=== PATIENT | female | born 1980 | race Caucasian/White ===

== ENCOUNTER 2024-01-22 06:19 | Observation (INO) ==
[~2024-01-22 06:19] MED LIST: Metoclopramide 5 MG/ML VIAL (10 mg) IV PRN; NS 0.45% 1000 ml BAG 1,000 ML IV SCH; Naloxone 0.4 mg VIAL 0.4 mg/ml 1 ml VIAL IV PRN
[2024-01-22] MEDS ORDERED: Scopolamine 1 mg/72hr PATCH ONE (07:18)
[2024-01-22] MEDS ORDERED: ceFAZolin 2 GM PREMIX 2 GM/50 ML BAG ONE (07:18)
[2024-01-22] MEDS ORDERED: fentaNYL 100 mcg/2 ml 50 MCG/ML VIAL ONE (14:37)
[2024-01-22] MEDS ORDERED: Ondansetron 4 mg VIAL 2 MG/ML 2 ml VIAL ONE (14:38)
[2024-01-22] MEDS: Ondansetron 4 mg VIAL 2 MG/ML 2 ml VIAL IV PRN (14:40)
[2024-01-22] MEDS: fentaNYL 100 mcg/2 ml 50 MCG/ML VIAL IV PRN (14:40)
[2024-01-22] MEDS: Acetaminophen IV 1 GM/100ML 1,000 MG/100 ML BAG IV ONE (15:18)
[2024-01-22] MEDS: Midazolam 2 mg/2 ml VIAL 1 mg/ml 2 ml VIAL (2 mg) IV SLOW PU ONE (16:43)
[2024-01-22] MEDS ORDERED: Magnesium Hydroxide LIQ 30 ML UDC PO PRN (17:23)
[2024-01-22] MEDS ORDERED: Calcium Carb (TUMS) 500 mg CHEW TAB PO PRN (17:23)
[2024-01-22] MEDS ORDERED: Lactulose 30 ml UDC PO PRN (17:23)
[2024-01-22] MEDS ORDERED: Ondansetron ODT 4 mg TAB 4 MG TAB PO PRN (17:23)
[2024-01-22] MEDS ORDERED: HYDROmorphone 1 MG/1 ML SYRINGE ONE (18:08)
[2024-01-22] MEDS: HYDROmorphone 0.5 MG/0.5 ML SYRINGE IV SLOW PU ONE (18:10)
[2024-01-22] MEDS: Lactated Ringers 1000 ml BAG 1,000 ML IV SCH ×2 (18:53→19:16)
[2024-01-22] MEDS: Morphine 2 MG/ML SYRINGE IV PRN (19:05)
[2024-01-22] MEDS: Scopolamine 1 mg/72hr PATCH TRANSDERM ONE (19:15)
[2024-01-22] MEDS: Buffered Lidocaine 1% SYRIN 1 ml INTRADERM ONE (19:15)
[2024-01-22] MEDS: ceFAZolin 2 GM PREMIX 2 GM/50 ML BAG IV SCH (22:17)
[2024-01-22] MEDS: Magnesium Hydroxide LIQ 30 ML UDC PO SCH (22:58)
[2024-01-23] MEDS: Vitamin THERAPEUTIC TAB PO SCH (08:04)
[2024-01-23 09:05] LABS: Hematocrit 34.9 % (35-45); Hemoglobin 11.3 g/dL (11.5-14.3); Mean Platelet Volume 8.2 fL (7.5-11.2); Platelet Count 310 10^3/uL (150-450)
[2024-01-23 09:25] LABS: Calcium 8.9 mg/dL (8.6-10.3); Creatinine, Serum 0.84 mg/dL (0.51-0.95); Potassium 3.6 mmol/L (3.5-5.0); eGFR CKD-EPI 88.4 (>60)
[2024-01-23 10:05] VITALS: BP 101/58
== END 2024-01-23 13:41 | disposition home or self-care (01) ==
LOC: OR 06:19 → SSU 06:19
PROVIDERS: ADMIT Student in an Organized Health Care Education/Training Program; ATTEND Orthopaedic Surgery